=== PATIENT | male | born 1940 | race Caucasian/White ===

== ENCOUNTER 2017-06-30 17:14 | Emergency (ER) | payer MEDICARE ==
[~2017-06-30] VITALS: Ht 188 cm; Wt 117.5 kg
[2017-06-30 18:48] LABS: HEMATOCRIT 40.3 % (39.2-51.8); HEMOGLOBIN 13.8 g/dL (13.7-18.0)
[2017-06-30 19:01] LABS: ASPARTATE AMINO TRANSFERASE 13 U/L (15-37); BLOOD UREA NITROGEN 18 mg/dL (7-18)
[2017-06-30] MEDS ORDERED: LOVA20TA2 PO (19:29)
[2017-06-30] MEDS ORDERED: SODIUM CHLORIDE 0.9% 1,000ML IVBOLUS ONE (19:30)
[2017-06-30] MEDS ORDERED: ASPI-496 PO (19:31)
[2017-06-30] MEDS ORDERED: CALC-649 PO (19:31)
[2017-06-30 20:25] VITALS: BP 128/66
[2017-06-30] MEDS ORDERED: OMNIPAQUE 350 MG/ML, 100ML BOTTLE ONE (20:31)
== END 2017-06-30 20:55 | disposition home or self-care (01) ==
LOC: ED 20:05
DX: K85.00 Idiopathic acute pancreatitis without necrosis or infection (principal); E78.00 Pure hypercholesterolemia, unspecified
CPT/HCPCS: 36415; 74177; 76700; 80053; 80061; 81003; 83690; 85025; 96360; 99285; J7030; Q9967

== ENCOUNTER 2017-08-30 05:45 | Day surgery (SDC) | payer MEDICARE ==
[~2017-08-30] VITALS: Ht 188 cm; Wt 109.0 kg
[~2017-08-30 05:45] MED LIST: ASPI-496 PO; CALC-649 PO; LOVA20TA2 PO
[2017-08-30 06:24] VITALS: BP 136/87
[2017-08-30] MEDS ORDERED: CHOL200074 PO (06:27)
[2017-08-30] MEDS ORDERED: LACTATED RINGERS 1,000 ML IV SCH (06:27)
[2017-08-30] MEDS ORDERED: LIDOCAINE 1%, 2ML SQ PRN (06:30)
[2017-08-30] MEDS ORDERED: FENTANYL PF 100 MCG/2ML ONE (07:23)
[2017-08-30] MEDS ORDERED: MIDAZOLAM 1 MG/ML, 2ML ONE (07:23)
[2017-08-30] MEDS ORDERED: FENTANYL PF 100 MCG/2ML IV PRN (07:30)
[2017-08-30] MEDS ORDERED: ACETAMINOPHEN 325 MG TABLET PO PRN (07:30)
[2017-08-30] MEDS ORDERED: HYDROmorphone 1 MG/ML, 1ML IV PRN (07:30)
[2017-08-30] MEDS ORDERED: ONDANSETRON 2MG/ML, 2ML IVPush PRN (07:30)
[2017-08-30] MEDS ORDERED: OXYcodone 5 MG/5 ML ORAL.SOL UDC PO PRN (07:30)
[2017-08-30] MEDS ORDERED: LABETALOL 5MG/ML, 20ML IV PRN (07:30)
[2017-08-30] MEDS ORDERED: MEPERIDINE/PF 25MG/0.5ML IVPush PRN (07:30)
[2017-08-30] MEDS ORDERED: PROPOFOL 10 MG/ML, 20ML ONE (07:38)
== END 2017-08-30 09:30 ==
LOC: OUT 05:45
PROVIDERS: ATTEND Internal Medicine Gastroenterology
DX: K85.90 Acute pancreatitis without necrosis or infection, unspecified (principal); K82.8 Other specified diseases of gallbladder; K29.50 Unspecified chronic gastritis without bleeding; I25.2 Old myocardial infarction; E78.00 Pure hypercholesterolemia, unspecified; Z98.890 Other specified postprocedural states; Z79.82 Long term (current) use of aspirin
CPT/HCPCS: 43239; 43259; 88305; 88342; J2250; J2704; J3010; J3490; J7120; G0461